=== PATIENT | female | born 1995 ===

== ENCOUNTER 2025-03-18 14:45 | Inpatient (IN) | payer OTHER ==
[~2025-03-18] VITALS: Ht 167.6 cm; Wt 108.0 kg
[2025-03-30] VITALS (8 sets, daily range): BP systolic 100–146; BP diastolic 53–83
[2025-03-30] MEDS ORDERED: PRENATAL TABLE1 EAC4 PO (03:23)
[2025-03-30] MEDS ORDERED: RINGERS SOLUTION,LACTATED 1,000 ML IV SCH (03:30)
[2025-03-30 04:26] LABS: BASO % 0.3 % (0.1-1.2); EOS # 0.05 (0.04-0.54); EOS % 0.4 % (0.7-7.0); LYMPH # 1.94 (1.18-3.74); LYMPH % 16.3 % (19.3-53.1); MEAN PLATELET VOLUME 12.30 fl (9.4-12.4); MONO # 0.94 (0.24-0.82); MONO % 7.9 % (4.7-12.5); NEUT # 8.91 (1.56-6.13); NEUT % 74.8 % (34.0-71.1); RED CELL DISTRIBUTION WIDTH 12.0 % (11.6-14.4)
[2025-03-30 04:27] LABS: URINE APPEARANCE Clear; URINE BILIRRUBIN Negative (NEGATIVE); URINE BLOOD Negative; URINE COLOR Yellow; URINE GLUCOSE Negative (NEGATIVE); URINE KETONE Negative (NEGATIVE); URINE LEUKOCYTE Negative; URINE NITRATE Negative; URINE PROTEIN Negative (NEGATIVE); URINE UROBILINOGEN 0.2 E.U./dl
[2025-03-30 04:31] LABS: URINE BACTERIA 7.1 uL (0.0-1933); URINE EPITHELIAL CELLS 4.3 uL (0.0-38.8)
[2025-03-30 04:42] LABS: TYPE CELLS SQUAMOUS; URINE CAST 0.00 uL (0.0-1.40); URINE RBC 0.8 uL (0.0-20.8); URINE WBC 1.5 uL (0.0-23.2)
[2025-03-30 04:56] LABS: INR < 0.93
[2025-03-30 05:01] LABS: ALT/SGPT 16.0 U/L (12-78); AST/SGOT 14.0 U/L (15-37); BILIRUBIN TOTAL 0.29 mg/dL (0.3-1.2); BUN CREA RATIO 19.0 (7.0-25.0); CREATININE SERUM 0.47 mg/dL (0.55-1.02); GFR 155.59; GLOBULINA 3.5 G/DL (2.4-3.5); GLUCOSE FASTING 84.0 mg/dL (65-100); OSMOLALITY SERUM 279.0 MOSM/KG (275-295)
[2025-03-30] MEDS ORDERED: OXYTOCIN 500 ML IV SCH (06:45)
[2025-03-30] MEDS ORDERED: CHLORHEXIDINE GLUCONATE 120 ML BOTTLE TOP ONE (16:30)
[2025-03-30] MEDS ORDERED: LIDOCAINE HCL 1% 10ML VIAL IJ ONE (16:30)
[2025-03-30] MEDS ORDERED: OXYTOCIN 1,000 ML IV SCH (16:30)
[2025-03-30] MEDS ORDERED: ACETAMINOPHEN 500 MG GEL..CAP PO PRN (16:30)
[2025-03-30] MEDS ORDERED: ERYTHROMYCIN BASE OPHT 1GM EACH TUBE OP ONE (16:30)
[2025-03-30] MEDS ORDERED: BENZOCAINE/MENTHOL 90 ML BOTTLE TOP SCH (17:00)
[2025-03-30] MEDS ORDERED: HYDROCORTISONE 2.5% 30 GM TUBE RECTAL SCH (17:00)
[2025-03-31 01:00] LABS: BASO % 0.2 % (0.1-1.2); EOS # 0.00 (0.04-0.54); EOS % 0.0 % (0.7-7.0); LYMPH # 1.52 (1.18-3.74); LYMPH % 8.5 % (19.3-53.1); MEAN PLATELET VOLUME 12.50 fl (9.4-12.4); MONO # 1.29 (0.24-0.82); MONO % 7.2 % (4.7-12.5); NEUT # 15.00 (1.56-6.13); NEUT % 83.7 % (34.0-71.1); RED CELL DISTRIBUTION WIDTH 12.4 % (11.6-14.4)
[2025-03-31 01:09] VITALS: BP 100/65
[2025-03-31] MEDS ORDERED: HYPERRHO S-1500 UNIT IM (07:05)
[2025-03-31] MEDS ORDERED: FF) RHO(D) IMMUNE GLOBULIN (POM) IM NR (07:15)
[2025-03-31] MEDS ORDERED: HYDROCORTISONE 2.5% 30 GM TUBE RECTAL SCH (09:00)
[2025-03-31 09:36] VITALS: BP 103/67
[2025-03-31 16:01] VITALS: BP 107/71
[2025-04-01 00:49] VITALS: BP 122/80
[2025-04-01 08:07] VITALS: BP 105/71
== END 2025-04-01 10:50 | disposition home or self-care (01) | DRG 807 ==
LOC: OB/GYN 14:45 → LDR 03-30 03:22 → OB/GYN 03-30 16:26
PROVIDERS: ADMIT Specialist; ATTEND Specialist
PROC: 10E0XZZ Delivery of Products of Conception, External Approach (ICD-10-PCS; principal; 2025-03-30)
PROC: 0HQ9XZZ Repair Perineum Skin, External Approach (ICD-10-PCS; 2025-03-30)
PROC: 4A1HXCZ Monitoring of Products of Conception, Cardiac Rate, External Approach (ICD-10-PCS; 2025-03-30)
DX: O70.0 First degree perineal laceration during delivery (principal); Z37.0 Single live birth; Z3A.39 39 weeks gestation of pregnancy